=== PATIENT | female | born 1970 | race American Indian/Alaskan Native ===

== ENCOUNTER 2022-04-21 13:09 | Outpatient (CLI) | payer BC | END 2022-04-21 13:10 | disposition home or self-care (01) | LOC: MAMMO 13:09 | PROVIDERS: ATTEND Obstetrics & Gynecology | DX: Z12.31 Encounter for screening mammogram for malignant neoplasm of breast (principal) | CPT/HCPCS: 77067 ==

== ENCOUNTER 2022-06-19 09:12 | Outpatient (CLI) | payer BC ==
--- NOTE | 2022-06-19 11:18 | Ultrasound Report ---
ULTRASOUND BREAST BILATERAL COMPLETE, 06/19/2022 CLINICAL INFORMATION / INDICATION: The patient presents for additional evaluation of palpable lumps i n both axillae. TECHNIQUE: Targeted ultrasound evaluation was performed of the area of interest. COMPARISON: Bilateral mammogram, 04/21/2022 FINDINGS: Right breast: Sonographic evaluation of the right breast demonstrates no suspicious solid mass or sha dowing. Targeted evaluation of the patient's area of palpable concern in the right axilla demonstrate s no suspicious mass, abnormal lymph nodes or other abnormality. Left breast: Sonographic evaluation of the left breast demonstrates no suspicious solid mass or shado wing. Targeted evaluation of the patient's area of palpable concern in the left axilla demonstrates n o suspicious mass, abnormal lymph nodes or other abnormality. IMPRESSION: 1. No sonographic abnormality of either breast. Clinical correlation is recommended for the patient' s areas of palpable concern in the axillary regions. Follow up recommendation: Clinical exam BI-RADS Category 1: NEGATIVE. A normal or "negative" report should not preclude biopsy or follow-up of a clinically suspicious find ing. Signer Name: Annabelle King MD Signed: 06/19/2022 11:13 AM Workstation Name: [email or web address]
== END 2022-06-19 09:13 | disposition home or self-care (01) ==
LOC: MAMMO 09:12
PROVIDERS: ATTEND Obstetrics & Gynecology
DX: R92.8 Other abnormal and inconclusive findings on diagnostic imaging of breast (principal)